=== PATIENT | male | born 1950 | race Caucasian/White ===

== ENCOUNTER 2017-01-13 08:18 | Emergency (ER) | payer OTHER ==
[2017-01-13 09:08] LABS: BASOPHIL 0.3 % (0-2); EOSINOPHIL 0.1 % (0-7); HCT 44.3 % (42.0-52.0); HGB 15.3 g/dl (13.2-18.0); LYMPHOCYTE 16.1 % (15-48); MCH 31.7 pg (25.0-31.0); MCHC 34.5 g/dL (32.0-36.0); MCV 91.7 fL (78.0-100.0); MONOCYTE 5.3 % (0-12); MPV 10.2 fL (6.0-9.5); NEUTROPHIL 78.2 % (41-80); PLT 269 K/uL (150-400); RBC 4.83 M/uL (4.70-6.00); RDW 14.3 % (11.5-14.0)
[2017-01-13 09:13] LABS: INR 1.01 (0.9-1.2); PROTHROMBIN TIME 12.9 SECONDS (11.7-14.0); PTT 29.9 SECONDS (23.2-31.4)
[2017-01-13 09:23] LABS: ALBUMIN 3.7 g/dL (3.4-4.8); BILIRUBIN - TOTAL 0.2 mg/dL (0.1-1.0); CREATININE 0.6 mg/dL (0.7-1.2); GLOBULIN (CALCULATION) 3.5 g/dL (2.2-4.2); POTASSIUM 3.6 mmol/L (3.5-5.1); TOTAL PROTEIN 7.2 g/dL (6.4-8.3)
[2017-01-13 09:35] LABS: LACTIC ACID 1.4 mmol/L (0.5-2.2)
[2017-01-13 11:00] LABS: BILIRUBIN NEGATIVE (NEGATIVE); BLOOD NEGATIVE Ery/uL (NEGATIVE); CLARITY CLEAR (CLEAR); COLOR YELLOW (YELLOW); GLUCOSE (U) NORMAL (NORMAL); KETONE (U) NEGATIVE (NEGATIVE); LEUKOCYTES NEGATIVE Leu/uL (NEGATIVE); NITRITE NEGATIVE (NEGATIVE); PROTEIN NEGATIVE (NEGATIVE); SPECIFIC GRAVITY 1.015 (1.001-1.030); UROBILINOGEN 0.2 mg/dL (0.2-1.0); pH 7.5 (5.0-9.0)
== END 2017-01-13 20:00 | disposition admitted as inpatient to this hospital (09) ==
LOC: FER 08:18
PROVIDERS: Emergency Medicine
DX: K80.10 Calculus of gallbladder with chronic cholecystitis without obstruction (principal); I10 Essential (primary) hypertension; K21.9 Gastro-esophageal reflux disease without esophagitis; J44.9 Chronic obstructive pulmonary disease, unspecified; E78.5 Hyperlipidemia, unspecified; F17.210 Nicotine dependence, cigarettes, uncomplicated; Z86.73 Personal history of transient ischemic attack (TIA), and cerebral infarction without residual deficits; Z79.51 Long term (current) use of inhaled steroids; Z79.899 Other long term (current) drug therapy; Z98.890 Other specified postprocedural states
CPT/HCPCS: 36415; 76705; 80053; 81003; 83605; 83690; 84484; 85025; 85610; 85730; 87040; 93005; C9113; J1170; J1644; J2270; J2405; J2543; Q9967